=== PATIENT | male | born 1960 | race Caucasian/White ===

== ENCOUNTER 2019-11-21 09:42 | Outpatient (CLI) | payer OTHER, SELFPAY ==
--- NOTE | 2019-11-21 09:30 | XR_ITS ---
WS: [id number] ABDOMEN KUB CLINICAL INFORMATION: Renal/ureteral calculi. COMPARISON: August 17, 2019 FINDINGS: Previously described large left pelvic calculus has resolved. A few tiny subcentimeter left renal pel nicolás and parenchymal calculi the largest measuring 3 to 4 mm. No visualized ureteral calculi. Prostate calcification. Fecal retention right colon obscures right kidney. XR/XR KUB [id number] Impression: 1. Large left renal calculus has resolved with a few residual subcentimeter re nal parenchymal calculi measuring 3 to 4 mm. 2. No ureteral calculi.
== END 2019-11-21 09:43 | disposition home or self-care (01) ==
LOC: RAD 09:46
PROVIDERS: Family Provider Family Medicine; PCP Family Medicine; Visit Provider Urology
DX: N20.0 Calculus of kidney (principal)
CPT/HCPCS: 74018; 81001; 87077; 87086; 87186

== ENCOUNTER 2019-11-27 10:26 | Day surgery (SDC) | payer OTHER, SELFPAY ==
[2019-11-24 08:51] VITALS: BMI 37.2
[2019-11-27] VITALS (7 sets, daily range): BP systolic 146–160; BP diastolic 82–105; PULSE 44–66; RESP 12–20; TEMP 36.1–36.6; O2SAT 92–99
--- NOTE | 2019-11-27 | XR_ITS ---
WS: [id number] KUB, 11/27/2019 Clinical Data: Preop ESWL left lower pole calculi Comparison: KUB, 11/21/2019 Findings: Numerous calcifications overlying the left kidney. There is a central calcification which has been me asured at 0.34 cm. There are smaller calcifications overlying the lower pole of the left kidney. Ther e are calcifications overlying the right kidney. The prostate calcifications. XR/XR KUB [id number] Impression: 1. Multiple small calcifications overlying left kidney. 2. At least 2 calcifications overlying right kidney.
[2019-11-27] MEDS: sodium chloride 0.9% 1,000 ML 30 ML IV (11:23)
--- NOTE | 2019-11-27 12:07 | ANES.PREANE2 ---
Pre-Anesthetic Assessment Pre-Anesthetic Assessment: Height/Weight: Height 1.73 m Weight 111.13 kg Temp Pulse Resp BP Pulse Ox 97.6 F 45 L 18 157/105 97 11/27/19 11:03 11/27/19 11:03 11/27/19 11:03 11/27/19 11:03 11/27/19 11:03 Preop Diagnosis: Residual left lower pole renal calculi Proposed Procedure: Operation Date: 11/27/19 12:00 Proposed Procedures p ESWL(Not Applicable) - García Malik MD Was Beta Elijah taken within 24 hours: Yes Last intake: Intake Last Liquid Date 11/26/19 Last Liquid Time 20:00 Last Solid Date 11/26/19 Last Solid Time 12:00 Exam: Pre-Anes Outpt Exam: alert, oriented x 3, clear to auscultation bilaterally and regular rate & rhythm Airway: Submandibular: WNL Cervical ROM: WNL MP: 1 Dentition: Full History/ROS: No significant history except as noted and No significant complaints Pulmonary: Pulmonary: Cough CV/HEM: CV/HEM: HTN : Comments: renal calculi Hepatic: Hepatic: None reported GI: GI: None reported Metabolic: Metabolic: None reported Musc/skel: Musc/skel: None reported Neuropsych: Neuropsych: VILLARREAL Anesthetic Plan: ASA status: 2 Anesthesia: General Risk of > 500 ml blood loss (7ml/kg in children): No Meds/Allergies Current Medications: Current Medications Generic Name Dose Route Start Last Admin Trade Name Freq PRN Reason Stop Dose Admin Sodium Chloride 1,000 mls @ 30 ml s/hr 11/27/19 11:00 11/27/19 11:23 Sodium Chloride 0.9% IV 11/28/19 10:59 30 mls/hr .Q24H WALTER Administration PFSH Anesthesia PFSH: Social History Smoking and tobacco status: former smoker Alcohol intake: current Marital status: Current occupational status: retired Current gender identity: Male Data Anesthesia Cardiac Studies: No Data to Display
--- NOTE | 2019-11-27 12:12 | PM.HPUD ---
H&P update H&P Update: DATE OF SURGERY/PROCEDURE: 11/27/19 DATE H&P PERFORMED: 11/21/19 CHANGES TO PREVIOUS DOCUMENTATION: None PREOP DIAGNOSIS: Residual left lower pole renal calculi PLANNED PROCEDURE: Operation Date: 11/27/19 12:00 Proposed Procedures p ESWL(Not Applicable) - García Malik MD Full H&P Medications/Allergies: Current Medications: Current Medications Generic Name Dose Route Start Last Admin Trade Name Freq PRN Reason Stop Dose Admin Sodium Chloride 1,000 mls @ 30 ml s/hr 11/27/19 11:00 11/27/19 11:23 Sodium Chloride 0.9% IV 11/28/19 10:59 30 mls/hr .Q24H WALTER Administration Perinent History: Medical/Surgical History: Medical History (Updated 11/21/19 @ 11:17 by García Malik MD) Bilateral renal stones BPH w urinary obs/LUTS Hypercalciuria Recurrent UTI Status post extracorporeal shock wave therapy Family History: Family History (Updated 11/20/19 @ 13:57 by Larisa De Luna LPN) Mother Hypertension Diabetes Social History: Social History Smoking and tobacco status: former smoker Alcohol intake: current Marital status: Current occupational status: retired Current gender identity: Male
--- NOTE | 2019-11-27 12:13 | P.OP_ITS ---
Operative Report Date of procedure: November 27, 2019 Pre-op Diagnosis: Residual left lower pole renal calculi Post-op diagnosis: same Procedure Done: Extracorporeal shockwave lithotripsy to left renal calculi Implants: None Specimens removed/disposition: None Pathology: none sent Surgeon: García Malik Firestopper Installer: Lithotripsy fabrication technician: Ruperto Anesthesia: General Estimated blood loss: None Urine output: Not measured Complications: None Findings: Stones easily identified with fluoroscopy. Total of 2500 shocks administered to separate areas and stone clusters. Good change noted. Condition: stable Disposition: PACU Brief History: 59-year-old white male with complicated history of stone and recently underwent left percutaneous nephrostolithotomy to a large symptomatic left renal calculus with a few fragments remaining on follow-up. Historically he has been a prolific stone former and the goal with treatment of the stones with ESWL was to try to become stone free to reduce that chance. Procedure: After routine preoperative evaluation examination and obtaining of informed consent he was taken to the operating suite on 11/27/2019 where general anesthesia was administered without difficulty after appropriate timeout was performed, SCDs confirmed to be functioning, preoperative antibiotics administered, beta-jake protocol confirmed. Positioned on Dornier unit such that the stones were located in the focal point utilizing biplanar fluoroscopy. Shock head positioned posteriorly. Total of 2500 shocks were administered. Fluoroscopy was used for real-time positional changes. Notable change in the appearance of the stones by the completion of the procedure. Tolerated the procedure well without complications and was awakened in the operating room and returned recovery in stable condition. PLANS: 1. Return to clinic in 2 weeks with KUB 2. Call for refractory symptoms.
[2019-11-27] MEDS: levofloxacin-dextrose 5 % 500 MG/100 ML PREMIX 100 MG IV (12:18)
--- NOTE | 2019-11-27 13:27 | SUR.PHASEI ---
PT AWAKE ALERT ORIENTED X 3 PT DENIES PAIN AND NAUSEA, PT ON RA NO DISTRESS SATS 94%, PT REQUESTS SPRITE TO SIP ON.
== END 2019-11-27 14:00 | disposition home or self-care (01) ==
PROVIDERS: Family Provider Family Medicine; PCP Family Medicine; Visit Provider Urology
PROC: (CPT 50590; principal; 2019-11-27 12:00)
DX: N20.0 Calculus of kidney (principal); N40.1 Benign prostatic hyperplasia with lower urinary tract symptoms; N13.8 Other obstructive and reflux uropathy; Z82.49 Family history of ischemic heart disease and other diseases of the circulatory system; Z83.3 Family history of diabetes mellitus; Z87.891 Personal history of nicotine dependence; I10 Essential (primary) hypertension
CPT/HCPCS: 50590; 12345; 74018; J1100; J1956; J2001; J2405; J2704; J2710; J3010; J3490; J7030

== ENCOUNTER 2019-12-08 08:08 | Outpatient (CLI) | payer OTHER, SELFPAY ==
--- NOTE | 2019-12-08 08:10 | XR_ITS ---
WS: [id number] XR KUB [id number] REASON FOR EXAM: Renal Stones FINDINGS: Stones are again seen in both kidneys more on the left than right. The ureters show no definite calcified densities. The urinary bladder was normal. No obstructing changes in the abdomen. No air-fluid levels. There is fecal stasis seen. XR/XR KUB [id number] IMPRESSION: Bilateral renal lithiasis.
== END 2019-12-08 08:09 | disposition home or self-care (01) ==
PROVIDERS: Family Provider Family Medicine; PCP Family Medicine; Visit Provider Urology
DX: N20.0 Calculus of kidney (principal)
CPT/HCPCS: 74018; 81001

== ENCOUNTER 2020-03-27 14:28 | Outpatient (CLI) | payer OTHER, SELFPAY ==
--- NOTE | 2020-03-27 14:34 | MR_ITS ---
WS: [id number] MRI LUMBAR SPINE NONCONTRAST TECHNIQUE: Sagittal T1, T2 and STIR imaging. Axial T1 and T2 imaging. CLINICAL INFORMATION: LOW BACK PAIN COMPARISON: None. FINDINGS: Mild lumbar curve. No acute compression. No high-grade central canal stenosis. Mild disc bulging L5-S 1. L1-L2: Normal. L2-L3: Minimal annular bulging. Spinal canal and foramen are patent. Mild facet arthropathy. L3-L4: Mild annular bulging. Slight narrowing of the subarticular recess bilaterally. Mild bilateral foraminal narrowing L4-L5: Mild annular bulging with slight effacement of ventral thecal sac. Narrowing of subarticular r ecess bilaterally. Mild right and no significant left foraminal narrowing. Mild facet arthropathy. L5-S1: Mild disc bulging with osteophytic ridging. Tiny shallow central protrusion. Spinal canal is p atent. Mild facet arthropathy. Mild bilateral foraminal narrowing. MR/MR lumbar spine wo con* [id number] IMPRESSION: 1. Mild lumbar curve. No acute compression. No significant central canal steno sis. 2. Eccentric disc bulging L5-S1 with osteophytic ridging and mild bilateral fo raminal narrowing. 3. Mild bilateral L3-4 foraminal narrowing right greater than left. 4. Mild right L4-5 foraminal narrowing slightly encroaches on the exiting righ t L4 nerve root. Slight narrowing of the right subarticular recess. 5. Moderate facet arthropathy L4-L5
--- NOTE | 2020-03-27 14:34 | XR_ITS ---
WS: [id number] LUMBAR SPINE FLEXION AND EXTENSION TECHNIQUE: 3 views of the lumbar spine: Lateral neutral, flexion, and extension views. CLINICAL INFORMATION: LOW BACK PAIN,COMMENT PRESENCE OR ABSENCE OF SPINAL INSTABIL COMPARISON: MRI March 27, 2020 FINDINGS: Slight anterolisthesis L4 on L5 the neutral position measuring 2.8 mm. This is unchanged on flexion-extension. No significant instability. Moderate facet arthropathy L4-L5 and L5-S1. Mild disc space narrowing L5-S1. XR/XR lumbar spine f/e only [id number] IMPRESSION: 1. Slight anterolisthesis L4 on L5 in the neutral position measuring 2.8 mm. N o instability on flexion-extension. 2. Moderate facet arthropathy L4-L5 and L5-S1.
== END 2020-03-27 14:29 | disposition home or self-care (01) ==
LOC: RADWPI 14:31
PROVIDERS: Family Provider Family Medicine; PCP Family Medicine; Visit Provider Nurse Practitioner
DX: M47.897 Other spondylosis, lumbosacral region (principal); M47.816 Spondylosis without myelopathy or radiculopathy, lumbar region; M54.5 Low back pain; M48.07 Spinal stenosis, lumbosacral region
CPT/HCPCS: 72120; 72148

== ENCOUNTER 2020-04-01 09:27 | Outpatient (CLI) | payer OTHER, SELFPAY ==
--- NOTE | 2020-04-01 10:15 | XR_ITS ---
WS: [id number] XR KUB [id number] REASON FOR EXAM: Stone FINDINGS: Stone is seen in the inferior pole of the left kidney. There is marked fecal stasis in the right colon. The remaining abdomen was normal. XR/XR KUB [id number] IMPRESSION: Stone in the inferior pole of the left kidney Fecal stasis
== END 2020-04-01 09:28 | disposition home or self-care (01) ==
LOC: RAD 09:31
PROVIDERS: PCP Family Medicine; Visit Provider Urology
DX: N20.0 Calculus of kidney (principal)
CPT/HCPCS: 74018; 81001

== ENCOUNTER 2020-05-03 15:17 | Outpatient (CLI) | payer OTHER, SELFPAY ==
--- NOTE | 2020-05-03 15:24 | MR_ITS ---
WS: [id number] INDICATION: Left elbow pain TECHNIQUE: MR of the left elbow without gadolinium enhancement. Axial T1 and T2 coronal T1 coronal PD coronal STIR and sagittal PD imaging. Axial 3-D FSPGR. FINDINGS: Normal anatomic alignment. No acute fractures. Normal bone marrow signal. Normal radial hea d and neck. Olecranon is normal. Distal humerus is normal. Diffuse irregularity with T2 signal abnormality and edema involving the biceps tendon with high-grade tear approximately 2.0 cm from the insertion on the radial tuberosity. Fluid along the distal tendon sheath. No significant tendon retraction. No bony avulsion. Edema extends into the biceps muscle bel ly distally. Evidence of tendon thickening and tendinopathy involving the residual radial tendon mary chment. Radial collateral and ulnar collateral ligaments appear intact. Susceptibility artifact from prior tr iceps tendon repair. Distal triceps tendon appears intact. MR/MR elbow LT wo con* [id number] IMPRESSION: 1. High-grade tear of the distal biceps tendon with diffuse edema along the bi ceps tendon sheath. Tear is approximately 2.0 cm from the radial tuberosity ins ertion. Tendon remains below the elbow with minimal retraction. 2. Distal triceps tendon appears intact with evidence of prior surgical repair . 3. No acute fractures. 4. Edema extends into the distal biceps muscle belly.
== END 2020-05-03 15:18 | disposition home or self-care (01) ==
LOC: RADWPI 15:22
PROVIDERS: PCP Family Medicine; Visit Provider Registered Nurse
DX: M25.522 Pain in left elbow (principal); S46.212A Strain of muscle, fascia and tendon of other parts of biceps, left arm, initial encounter; X58.XXXA Exposure to other specified factors, initial encounter
CPT/HCPCS: 73221

== ENCOUNTER 2020-10-01 10:20 | Outpatient (CLI) | payer OTHER, SELFPAY ==
--- NOTE | 2020-10-01 09:30 | XR_ITS ---
WS: [id number] KUB, 10/01/2020 Clinical Data: BILATERAL STONES Comparison: KUB, 04/01/2020. Findings: No abnormal intraabdominal masses are seen. There is no dilatated small bowel or evidence of obstruct ion. There are calcifications overlying The right kidney and probably the inferior pole of the left kidney. There are also calcifications in the prostate. There is a large amount of fecal material throughout the colon. XR/XR KUB [id number] Impression: Bilateral renal calcifications unchanged.
== END 2020-10-01 10:21 | disposition home or self-care (01) ==
PROVIDERS: PCP Family Medicine; Visit Provider Urology
DX: N20.0 Calculus of kidney (principal)
CPT/HCPCS: 74018; 81003

== ENCOUNTER 2021-04-01 11:47 | Outpatient (CLI) | payer MEDICARE, OTHER, SELFPAY ==
--- NOTE | 2021-04-01 12:00 | XR_ITS ---
WS: [id number] Exam: XR KUB [id number] Date/Time of Exam: 04/01/2021 12:18 PM Reason For Exam: N20.0 - Calculus of kidney Comparison 10/01/2020. Calcifications superimpose both kidneys and apparently represent renal stones. No bowel obstruction o r free air. Calcifications in the central pelvis are unchanged. Visualized organ margins are intact. Moderate amount retained stool in the right colon. XR/XR KUB [id number] IMPRESSION: 1. Calcifications superimposing both kidneys most likely renal stones. 2. No acute abdominal finding.
== END 2021-04-01 11:48 | disposition home or self-care (01) ==
LOC: RAD 12:06
PROVIDERS: PCP Family Medicine; Visit Provider Urology
DX: N20.0 Calculus of kidney (principal)
CPT/HCPCS: 74018; 81003

== ENCOUNTER 2021-10-01 11:38 | Outpatient (CLI) | payer MEDICARE, OTHER, SELFPAY ==
--- NOTE | 2021-10-01 11:44 | XRR_ITS ---
PROCEDURE INFORMATION: Exam: XR Abdomen Exam date and time: 10/01/2021 11:44 AM Age: 61 years old Clinical indication: Condition or disease; Kidney or ureter condition; Calculus (stone) in kidney; Additional info: Bilateral renal stones TECHNIQUE: Imaging protocol: XR of the abdomen. Views: Frontal supine view of the abdomen. 1 View. COMPARISON: CR XR KUB [id number] 04/01/2021 12:29 PM FINDINGS: Gastrointestinal tract: The bowel gas pattern is nonspecific. Air filled large bowel including distal rectal gas. Organs: Numerous renal calcifications overlie the lower pole the right kidney largest of approximately 6 mm. Calcification overlies the midpole region and upper pole region of the left kidney. Bones/joints: Unremarkable. XR/XR KUB [id number] IMPRESSION: The bowel gas pattern is nonspecific. Air filled large bowel including distal rectal gas.
== END 2021-10-01 11:39 | disposition home or self-care (01) ==
LOC: RAD 11:40
PROVIDERS: PCP Family Medicine; Visit Provider Urology
DX: N20.0 Calculus of kidney (principal)
CPT/HCPCS: 74018; 81003

== ENCOUNTER 2022-01-02 10:07 | Outpatient (CLI) | payer MEDICARE, OTHER, SELFPAY ==
[2022-01-02 11:18] LABS: Alanine Aminotransferase 26 U/L (0-41); Albumin Level 4.2 g/dL (3.5-5.2); Alkaline Phosphatase 91 IU/L (40-130); Anion Gap 16.3 (5-19); Aspartate Amino Transferase 26 U/L (0-40); Blood Urea Nitrogen 19 mg/dL (8-23); Calcium 11.3 mg/dL (8.5-10.5); Carbon Dioxide 22 mmol/L (22-29); Chloride 102 mmol/L (98-107); Globulin 2.6 g/dL (1.3-4.6); Glucose 107 mg/dL (65-115); Osmolality Calculated 285 mOsm/kg (285-295); Potassium 4.3 mmol/L (3.5-5.1); Sodium 136 mmol/L (136-145); Total Bilirubin 0.2 mg/dL (0.15-1.2); Total Protein 6.8 g/dL (6.6-8.7)
[2022-01-02 11:34] LABS: 25 Hydroxy Vitamin D 32 ng/mL (30-100)
[2022-01-02 14:24] LABS: Calcium 11.8 mg/dL (8.5-10.5)
[2022-01-02 14:29] LABS: Parathyroid Hormone 73.2 pg/mL (15-65)
== END 2022-01-02 10:08 | disposition home or self-care (01) ==
LOC: LAB 10:14
PROVIDERS: PCP Family Medicine; Visit Provider Internal Medicine
DX: E21.0 Primary hyperparathyroidism (principal); E55.9 Vitamin D deficiency, unspecified; N20.0 Calculus of kidney; Z87.891 Personal history of nicotine dependence
CPT/HCPCS: 80053; 82306; 82310; 83970; 99204

== ENCOUNTER 2022-01-13 08:43 | Outpatient (CLI) | payer MEDICARE, OTHER, SELFPAY ==
--- NOTE | 2022-01-13 09:30 | NM_ITS ---
WS: [id number] NUCLEAR MEDICINE PARATHYROID STUDY WITH 19.7 MCI TECHNETIUM 99M SESTAMIBI INDICATION: Evaluate for adenoma. Low energy. Night sweats. Hyperparathyroidism. TECHNIQUE: 19.7 mCi technetium 99m sestamibi. Early and late anterior and RIGHT and LEFT oblique imag es were obtained. FINDINGS: Normal initial thyroid uptake with normal salivary gland activity. No hot or cold thyroid n odules visualized. On the delayed washout images, there is uniform washout of radiotracer from the RI GHT and LEFT thyroid lobes. No significant retained activity to indicate parathyroid adenoma. No othe r suspicious abnormality. NM/NM parathyroid [id number] IMPRESSION: No evidence of parathyroid adenoma.
== END 2022-01-13 08:44 | disposition home or self-care (01) ==
LOC: RAD 08:44
PROVIDERS: PCP Family Medicine; Visit Provider Internal Medicine
DX: E21.0 Primary hyperparathyroidism (principal)
CPT/HCPCS: 78070; A9500

== ENCOUNTER 2022-04-17 09:44 | Outpatient (CLI) | payer MEDICARE, OTHER, SELFPAY ==
--- NOTE | 2022-04-17 10:00 | XR_ITS ---
WS: [id number] XR KUB [id number] REASON FOR EXAM: Bilateral Renal Stones FINDINGS: Definite small renal calculus on the left unchanged previous examinations. On the right vaguely defined densities which likely represent the previously demonstrated calculi in the mid to lower pole of the right kidney. No calculi along the abdominal or pelvic course of the ureters. No bladder calculus. No significant abnormality of the lumbar spine or bony pelvis. XR/XR KUB [id number] IMPRESSION: Probably stable bilateral renal calculi as above.
== END 2022-04-17 09:45 | disposition home or self-care (01) ==
LOC: RAD 09:45
PROVIDERS: PCP Family Medicine; Visit Provider Urology
DX: N20.0 Calculus of kidney (principal); E21.0 Primary hyperparathyroidism
CPT/HCPCS: 74018; 81003; 82365; 88300; 99213

== ENCOUNTER 2022-06-12 22:37 | Emergency (ER) | payer MEDICARE, OTHER, SELFPAY ==
[2022-06-12 22:40] VITALS: BP 145/82; PULSE 80; RESP 18; TEMP 36.5; O2SAT 97; BMI 39.5
--- NOTE | 2022-06-12 22:53 | ED_ITS ---
HPI - Wound/Laceration General: Chief Complaint: Wound/Laceration Stated Complaint: cut pinky finger on Right hand Time Seen by Provider: 06/12/22 22:48 History of Present Illness: Patient comes in with a superficial injury to his right middle finger. Patient was here with his mother and his mother wanted him to be seen due to persistently bleeding. Patient reports the injury occurred about 6:00 this evening. Review of Systems Skin/Breast: Reports: new lesions PFSH ED PFSH: Medical History Bilateral renal stones BPH w urinary obs/LUTS Erectile dysfunction Hypercalciuria Recurrent UTI Status post extracorporeal shock wave therapy Surgical History History of adenoidectomy History of bilateral carpal tunnel release History of removal of calculus of renal pelvis through percutaneous nephrostomy History of surgery on arm left arm bicep tear History of tonsillectomy History of vasectomy Family History Mother Hypertension Diabetes Father No problems noted. Social History Smoking and tobacco status: never smoked Alcohol intake: current Marital status: Current occupational status: retired History of recent travel: No Current gender identity: Male Physical Exam Const: COMMON NORMALS: alert Neck/C-Spine: COMMON NORMALS: full ROM Extremity: RIGHT UPPER EXTREMITY: Yes hand & digits (1 cm superficial laceration to the dorsal distal middle finger right) Neuro: SENSORIUM/ORIENTATION: Yes alert Skin: TRAUMA: laceration (Superficial laceration dorsal right middle finger) irregular Procedures Laceration Laceration 1: Site: hand Side (If applicable): right Size (cm): 1 Description: irregular Depth: simple, single layer Pre-repair: wound explored Skin layer closed with: other (Skin adhesive) Course Vital Signs: Vital signs: Vital Signs Temperature 97.7 F 06/12/22 22:40 Pulse Rate 80 06/12/22 22:40 Respiratory Rate 18 06/12/22 22:40 Blood Pressure 145/82 06/12/22 22:40 Pulse Oximetry 97 06/12/22 22:40 Oxygen Delivery Me thod 06/12/22 22:40 MDM - Wound/Laceration Medical Decision Making 61-year-old male patient comes in for injury to the right little finger from a knife. On exam patient has irregular L-shaped laceration to the distal dorsal right middle finger. No tendon dysfunction is noted from the injury. No foreign body is noted. Reviewed exam with patient with recommendations for treatment with skin adhesive. Wound was cleaned and secured with skin adhesive. Differential diagnosis includes but not limited to fracture, laceration, foreign body. No fracture or foreign body was noted. Post procedure care instructions were reviewed with patient. Patient reported understanding. Discharge Plan Discharge Patient Disposition: Home Clinical Impression: Finger laceration Qualifiers: Encounter type: initial encounter Finger: little finger Damage to nail status: without damage Foreign body presence: without foreign body Laterality: right Qualified Code(s): S61.216A - Laceration without foreign body of right little finger without damage to nail, initial encounter Condition: Stable Prescriptions: No Action metoprolol succinate 100 mg capsule,sprinkle,ER 24hr 100 mg PO DAILY allopurinol 300 mg tablet 300 mg PO BID naproxen 250 mg tablet 250 mg PO BID alendronate 70 mg tablet PO .weekly cetirizine [Zyrtec] 10 mg tablet 10 mg PO DAILY PRN hydrochlorothiazide 25 mg tablet 25 mg PO DAILY Qty: 90 3RF Hold Instructions: Doctor's Order sildenafil (pulm.hypertension) 20 mg tablet See Rx Instructions .ROUTE .COMPLEX Qty: 30 6RF Dose Instruction: TAKE ONE TO 5 TABLETS BY MOUTH ONE HOUR BEFORE INTERCOURSE. TAKE ON AN EMPTY STOMACH. NO NITROGLYCERIN. MAX DOSE OF 100MG DAILY Rx Instructions: TAKE ONE TO 5 TABLETS BY MOUTH ONE HOUR BEFORE INTERCOURSE. TAKE ON AN EMPTY STOMACH. NO NITROGLYCERIN. MAX DOSE OF 100MG DAILY tamsulosin 0.4 mg capsule See Rx Instructions .ROUTE .COMPLEX Qty: 30 12RF Dose Instruction: TAKE ONE CAPSULE BY MOUTH ONCE DAILY Rx Instructions: TAKE ONE CAPSULE BY MOUTH ONCE DAILY Percocet 5-325 mg tablet 1 tab PO Q8H PRN (Reason: pain) Qty: 10 0RF Discharge Orders: Discharge ED (Routine); Ordered 06/12/22 Ordered By: Cedrick Dawn Referrals: Akilah Harden DO [Primary Care Provider] - Discharge Diet: Usual diet Discharge Activity: Increase activity as tolerated Patient Instructions: Skin Adhesive Care (ED) Activity Restrictions/Additional Instructions: Keep wound clean and dry. Activity as tolerated. Follow-up with primary care for further instruction. Return to ER for new concerns. Coding Level of Care Code ED Industrial Furnace Fabricator for Minnie Berry
== END 2022-06-12 23:20 | disposition home or self-care (01) ==
PROVIDERS: Emergency Provider Nurse Practitioner Family; PCP Family Medicine
DX: S61.216A Laceration without foreign body of right little finger without damage to nail, initial encounter (principal); X58.XXXA Exposure to other specified factors, initial encounter
CPT/HCPCS: 12001; 99282

== ENCOUNTER 2022-10-20 08:14 | Outpatient (CLI) | payer MEDICARE, OTHER, SELFPAY ==
--- NOTE | 2022-10-20 08:28 | XR_ITS ---
WS: [id number] KUB, AP view, 10/20/2022 Clinical Data: Bilateral Renal Stones Comparison: KUB, 04/17/2022 Findings: There are calcifications overlying both kidneys. Fecal material and bowel gas obscure some detail ove r the kidneys. There is no evidence of bowel dilatation or obstruction. XR/XR KUB [id number] Impression: Small bilateral renal calcifications.
== END 2022-10-20 08:15 | disposition home or self-care (01) ==
LOC: RAD 08:19
PROVIDERS: Visit Provider Urology
DX: N20.0 Calculus of kidney (principal)
CPT/HCPCS: 74018; 81003; 99213

== ENCOUNTER → 2023-01-06 10:34 | Outpatient (BNVA) | payer MEDICARE, OTHER, SELFPAY | PROVIDERS: Referring Provider Family Medicine; Visit Provider Dermatology | DX: L11.0 Acquired keratosis follicularis (principal) | CPT/HCPCS: 88305 ==

== ENCOUNTER → 2023-07-14 13:50 | Outpatient (BNVA) | payer MEDICARE, OTHER, SELFPAY | PROVIDERS: Visit Provider Nurse Practitioner Family | DX: L02.821 Furuncle of head [any part, except face] (principal); L57.8 Other skin changes due to chronic exposure to nonionizing radiation; L81.4 Other melanin hyperpigmentation; L57.0 Actinic keratosis | CPT/HCPCS: 17004; 99214 ==

== ENCOUNTER → 2024-01-12 10:46 | Outpatient (BNVA) | payer MEDICARE, OTHER, SELFPAY | PROVIDERS: Visit Provider Nurse Practitioner Family | DX: L02.821 Furuncle of head [any part, except face] (principal); L57.0 Actinic keratosis; L57.8 Other skin changes due to chronic exposure to nonionizing radiation; L81.4 Other melanin hyperpigmentation; L72.0 Epidermal cyst; S50.862A Insect bite (nonvenomous) of left forearm, initial encounter; X58.XXXA Exposure to other specified factors, initial encounter; D22.5 Melanocytic nevi of trunk | CPT/HCPCS: 17004; 99214 ==

== ENCOUNTER → 2024-06-20 09:41 | Outpatient (BNVA) | payer MEDICARE, OTHER, SELFPAY | PROVIDERS: Visit Provider Nurse Practitioner Family | DX: L02.821 Furuncle of head [any part, except face] (principal); L57.8 Other skin changes due to chronic exposure to nonionizing radiation; L81.4 Other melanin hyperpigmentation; L72.0 Epidermal cyst; D22.5 Melanocytic nevi of trunk; L57.0 Actinic keratosis; L23.9 Allergic contact dermatitis, unspecified cause | CPT/HCPCS: 17000; 99214 ==

== ENCOUNTER → 2024-08-04 08:25 | Outpatient (BNVA) | payer MEDICARE, OTHER, SELFPAY | PROVIDERS: Visit Provider Nurse Practitioner Family | DX: L23.9 Allergic contact dermatitis, unspecified cause (principal); L85.8 Other specified epidermal thickening; L02.821 Furuncle of head [any part, except face]; L57.0 Actinic keratosis; L57.8 Other skin changes due to chronic exposure to nonionizing radiation; L81.4 Other melanin hyperpigmentation; D22.5 Melanocytic nevi of trunk | CPT/HCPCS: 17000; 99214 ==